=== PATIENT | female | born 1995 | race African-American/Black ===

== ENCOUNTER 2020-02-12 17:35 | Emergency (ER) | payer MEDICAID, OTHER ==
[~2020-02-12] VITALS: Ht 160 cm; Wt 63.0 kg
[2020-02-12] MEDS ORDERED: ACETAMINOPHEN 325 MG TABLET PO STA (17:46)
--- NOTE | 2020-02-12 17:54 | ED Fall/Injury ---
General Chief Complaint: Trauma-Non Activation Stated Complaint: [facility] Nursing Triage Note: ARRIVED VIA EMS FROM WORK. PT IS APPX 9 WEEKS GESTATION AND HAD A SYNCOBLE EPISODE HITTING HER HEAD. DOES NOT REMEMBER THE INCIDENT. COMPLAINS OF PAIN IN HEAD AND NECK. C-COLLAR PUT ON BY EMS. History of Present Illness Date Seen by Provider: Feb 12, 2020 Time Seen by Provider: 17:40 Initial Comments 24 year old female presents after a fall today at work, she is 9 weeks gestation. She had gone into the store room at her place of employment, does not recall what happened but a staff member reports she witnessed her fall. No LOC. No history of seizure disorder. No seizure with fall. Unsure if she hit her head. She reported neck and head pain to EMS, c-collar in place. Previous cervical spine surgery. Denies radicular symptoms in UEs. Occurred: just prior to arrival Injuries/Pain Location: head, neck Context: fainted, lightheaded Loss of Consciousness: no loss of consciousness Associated Symptoms (Fall): No Abdominal Pain, No Chest Pain, No Dizziness; Headache; No Lightheadedness, No Muscle Spasms, No Nausea/Vomiting; Neck Pain; No Ringing in Ears, No Seizures, No Shortness of Air, No Slurred Speech, No Trouble Walking, No Vision Changes Allergies and Home Medications Allergies Coded Allergies: No Known Drug Allergies (Unverified , 02/12/20) Patient Home Medication List Home Medication List Reviewed: Yes Review of Systems Review of Systems Constitutional: no symptoms reported, see HPI Musculoskeletal: see HPI, neck pain Psychiatric/Neurological: See HPI, Headache All Other Systems Reviewed Negative Unless Noted: Yes Past Fnqsels-Spkcle-Wtozvu Hx Past Med/Social Hx: Reviewed Nursing Past Med/Soc Hx Patient Social History Recent Foreign Travel: No Contact w/Someone Who Travel: No Recent Infectious Disease Expo: No Past Medical History : Yes Last Menstrual Period: Dec 09, 2019 Hx : 3 Hx Para: 2 Hx Total # of Abortions (Sp): 0 Physical Exam Vital Signs Vital Signs - First Documented 02/12/20 17:35 Temp 35.5 Pulse 74 Resp 16 B/P (MAP) 115/75 (88) Pulse Ox 100 O2 Delivery Room Air Capillary Refill : Less Than 3 Seconds Height, Weight, BMI Height: '" Weight: lbs. oz. kg; 24.00 BMI Method: General Appearance: WD/WN, no apparent distress HEENT: PERRL/EOMI, normal ENT inspection, TMs normal, pharynx normal, other (normocephalic, no contusions or abrasions to head or neck. ) Neck: tender lateral; No tender midline Cardiovascular: normal peripheral pulses, regular rate, rhythm Respiratory: chest non-tender, lungs clear, normal breath sounds Gastrointestinal: normal bowel sounds, non tender, soft Extremities: normal range of motion, non-tender, normal inspection Neurologic/Psychiatric: shoeblack II-XII nml as tested, no motor/sensory deficits, alert, normal mood/affect, oriented x 3 Skin: normal color, warm/dry Rao Coma Score Best Eye Response: (4) Open Spontaneously Best Verbal Response: (5) Oriented Best Motor Response: (6) Obeys Commands Rao Total: 15 Progress/Results/Core Measures Results/Orders My Orders Orders - [facility]ROE[facility]ERRIE Acetaminophen Tablet/Caplet (Tylenol T (02/12/20 17:46) Vital Signs/I&O 02/12/20 17:35 Temp 35.5 Pulse 74 Resp 16 B/P (MAP) 115/75 (88) Pulse Ox 100 O2 Delivery Room Air Blood Pressure Mean: 88 Progress Progress Note : Time: 17:40 Progress Note patient seen and evaluated, no neurological deficits. Since she is having headac he and neck pain central and left trapezius, we will leave the C-collar on at this time. Explained that we will try to avoid radiation because of first trimester. Tylenol 650 mg for pain. 181 patient reports less head pressure, no feels like headache. Less central neck pain, continued pain in left trapezius. C-collar removed, gentle ROM with no neck pain or radicular symptoms. Will monitor. Neurovasc status intact bilat UEs. 1845 patient continues to report improvement in her symptoms, no further neck pa in and headache minimal. Ambulates with stable gait, no vertigo. Discharge instructions and return precautions reviewed. Departure Impression Primary Impression: Fall Qualified Codes: W19.XXXA - Unspecified fall, initial encounter Additional Impressions: First trimester Syncope and collapse Disposition: 01 HOME, SELF-CARE Condition: Improved Departure-Patient Inst. Decision time for Depature: 18:40 Referrals: CURTIS HERNDON DO Patient Instructions: - The Third Month, Syncope (Fainting) (DC) Add. Discharge Instructions: Increase water intake, make sure to eat small, frequent meals. Move from lying, sitting or standing, slowly. Use Tylenol 650 mg every 6-8 hours for pain. Follow up with Dr. Herndon before returning to work. Return to Emergency Dept for new, urgent healthcare problems. All discharge instructions reviewed with patient and/or family. Voiced u nderstanding. Work/School Note: Work Release Form Date Seen in the Emergency Department: Feb 12, 2020 Restrictions: Need Release from Doctor Other Restrictions Listed Below: Follow up with Dr. Herndon before returning to work Copy Copies To 1: CURTIS HERNDON AMY ARNP Feb 12, 2020 17:54
--- NOTE | 2020-02-12 18:15 | NUR ---
C-COLLAR REMOVED BY
--- NOTE | 2020-02-12 18:51 | NUR ---
REPORT FROM SAVANAH SULLIVAN
[2020-02-12 19:03] VITALS: BP 114/98
== END 2020-02-12 22:42 | disposition home or self-care (01) ==
LOC: EDSEX 17:36 → ER 17:36
DX: O26.891 Other specified pregnancy related conditions, first trimester (principal); R55 Syncope and collapse; O99.891 Other specified diseases and conditions complicating pregnancy; M54.2 Cervicalgia; O99.351 Diseases of the nervous system complicating pregnancy, first trimester; G89.11 Acute pain due to trauma; W19.XXXA Unspecified fall, initial encounter; Y92.59 Other trade areas as the place of occurrence of the external cause; Z3A.09 9 weeks gestation of pregnancy

== ENCOUNTER → 2020-04-30 | Outpatient (CLI) | payer MEDICAID ==
--- NOTE | 2020-04-30 14:35 | Diagnostic Imaging Report ---
INDICATION: Evaluate measurements, cervical length and placental location. TECHNIQUE: Multiple real-time grayscale images were obtained over the gravid uterus. COMPARISON: None FINDINGS: There is a single live fetus in a variable presentation. heart rate was recorded at 135 bpm. Placenta is fundal and anterior. Amniotic fluid volume is normal. Cervical length is 3.3 cm. kidneys, bladder and stomach are unremarkable. brain is unremarkable. There is a four-chamber heart. There is a three-vessel cord with normal insertion. spine is unremarkable. Biometrical measurements are as follows: Biparietal 4.6 cm, age 20 weeks 0 days. Head circumference 18.43 cm, age 20 weeks 6 days. Abdominal circumference 15.69 cm, age 20 weeks 6 days. Femur length 3.39 cm, age 20 weeks 5 days. Sonographic estimate age: 20 weeks 5 days. Sonographic estimated date of delivery: 09/12/2020. Estimated Weight: 373 gm (+/- 54 gm). LMP percentile: 62%. heart rate: 135 beats per minute. number: 1 of 1. IMPRESSION: Single live IUP 20 weeks 5 days gestational age. Estimated date of confinement sonographically 09/12/2020. Dictated by: Dictated on workstation # [id number]
== END ==
LOC: RAD 09:19
PROVIDERS: ATTEND Nurse Practitioner Women's Health
DX: Z34.02 Encounter for supervision of normal first pregnancy, second trimester (principal); Z3A.20 20 weeks gestation of pregnancy
CPT/HCPCS: 76805

== ENCOUNTER 2020-09-06 11:43 | Inpatient (IN) | payer MEDICAID ==
[2020-09-06] VITALS (43 sets, daily range): BP systolic 54–138; BP diastolic 26–80
[2020-09-06] MEDS ORDERED: MINERAL OIL CONCENTRATE 99.9% 15 ML UDC TOP PRN (12:00)
[2020-09-06] MEDS ORDERED: OXYTOCIN PRE-MIX DRIP 500 ML IV SCH (12:00)
[2020-09-06] MEDS ORDERED: LIDOCAINE/EPI 2% 1:200,00 (XYLOCAINE) 20 ML VIAL INJ PRN (12:00)
[2020-09-06 12:26] LABS: BASOPHILS % (AUTO) 0 % (0-10); EOSINOPHILS # (AUTO) 0.1 10^3/uL (0.0-0.3); EOSINOPHILS % (AUTO) 1 % (0-10); HEMATOCRIT 33 % (35-52); HEMOGLOBIN 10.8 g/dL (11.5-16.0); LYMPHOCYTES # (AUTO) 2.3 10^3/uL (1.0-4.0); LYMPHOCYTES % (AUTO) 24 % (12-44); MEAN CORPUSCULAR HEMOGLOBIN 28 pg (25-34); MEAN CORPUSCULAR HGB CONC 33 g/dL (32-36); MEAN CORPUSCULAR VOLUME 86 fL (80-99); MEAN PLATELET VOLUME 10.4 fL (9.0-12.2); MONOCYTES # (AUTO) 0.6 10^3/uL (0.0-1.0); MONOCYTES % (AUTO) 6 % (0-12); NEUTROPHILS # (AUTO) 6.6 10^3/uL (1.8-7.8); NEUTROPHILS % (AUTO) 69 % (42-75); PLATELET COUNT 315 10^3/uL (130-400); WHITE BLOOD COUNT 9.6 10^3/uL (4.3-11.0)
[2020-09-06] MEDS: D5 LR IV SOLUTION 1,000 ML IV SCH ×2 (12:33→19:54)
[2020-09-06] MEDS ORDERED: PEDI1TAB35 PO (12:38)
[2020-09-06] MEDS ORDERED: LEVE500T99 PO (12:38)
--- NOTE | 2020-09-06 13:13 | History & Physical-OB ---
OB - Chief Complaint & HPI Date/Time Date of Admission: Date of Admission: Sep 06, 2020 at 11:43 Date seen by a Provider: Sep 06, 2020 Time Seen by a Provider: 12:30 Chief Complaint/History OB-Reason for Admission/Chief: 25 year old in labor, 38 6/7 weeks Hx : 3 Hx Para: 2 Expected Date of Delivery: Sep 14, 2020 Gestational Age in Weeks: 38 Gestational Age in Days: 6 Other reason for admission: this is a 25 [address] of Dr[address] Rodriguez that was scheduled for induction tomorrow. She was seen in the office today and sent to labor and delivery for labor. She lives in [place] and has history of precipitous delivery. Patient has a history of "seizures". She cannot recall the diagnosis but states she has had them since she was 4 without proper diagnosis. States that she has seen a neurologist and has just started Keppra. She has her next visit on 10/02/2020. Will continue Keppra during labor and post delivery. Will adjust levels as needed based on Neurology recommendations. Admission Nurse Assessment Rev: Yes History of Labs GBS - VDRL NR Rub I HbSAg- O-/- Hep C - Allergies and Home Medications Allergies Coded Allergies: Fish Containing Products (Verified Allergy, Unknown, 09/06/20) Home Medications Levetiracetam 500 Mg Tablet, 500 MG PO BID, (Reported) Take with breakfast and dinner Last Action: New Order Pediatric Multivit Comb. No.49 1 Each Tab.chew, 2 EACH PO DAILY, (Reported) Last Action: New Order Patient Home Medication List Home Medication List Reviewed: Yes OB - History Hx of Present Ultrasounds: Normal mid trimester US Obstetrical Complications: None Medical Complications: Other (Patient has had seizures since the age of 4. she is unsure the type, just that she "will be walking and all of a sudden I'm on the floor". She is on Keppra bid. ) Information Pre-Hospital Medication Admins: Keppra Induced Hypertension: No Maternal Gestational Diabetes: No Hemorrhage: No Obstetrical History Hx : 3 Hx Para: 2 Hx # Term Pregnancies: 2 Hx # Pregnancies: 0 Number of Living Children: 2 Delivery History Hx Dystocia: No Hx Forceps Assisted Delivery: No Hx Vacuum Extraction Assisted: No Hx Placenta Abnormality: No Hx Distress: No Patient Past Medical History seizure disorder Last was in June. Social History/Family History Alcohol Use: Denies Use Recreational Drug Use: No Smoking Cessation: Never smoker Immunizations Hepatitis A: No Hepatitis B: No Tetanus Booster (TDap): Less than 5yrs Rubella: immune RPR/VDRL: Negative GBS Status: Negative HBsAG: Negative OB - Admission Exam Physical Exam Heart: Rhythm Normal Lungs: Clear Abdomen: Gravid Extremities: Normal Reflexes: Normal Cervical Dilatation: 5cm Effacement: 50% Station: -1 Membranes: Ruptured (AROM clear) Amniotic Fluid: Clear Heart Rate: 140's Accelerations: Accelerations Present Decelerations: No Decelerations Short Term Variability: Present [place] Variability: Average (6-25) Contractions on Admission: < 5 Minutes Apart (irregular) Intensity: Mild Labs Laboratory Tests Test 09/06/20 12:13 Range/Units White Blood Count 9.6 4.3-11.0 10^3/uL Red Blood Count 3.85 3.80-5.11 10^6/uL Hemoglobin 10.8 L 11.5-16.0 g/dL Hematocrit 33 L 35-52 % Mean Corpuscular Volume 86 80-99 fL Mean Corpuscular Hemoglobin 28 25-34 pg Mean Corpuscular Hemoglobin Concent 33 32-36 g/dL Red Cell Distribution Width 12.8 10.0-14.5 % Platelet Count 315 130-400 10^3/uL Mean Platelet Volume 10.4 9.0-12.2 fL Immature Granulocyte % (Auto) 0 % Neutrophils (%) (Auto) 69 42-75 % Lymphocytes (%) (Auto) 24 12-44 % Monocytes (%) (Auto) 6 0-12 % Eosinophils (%) (Auto) 1 0-10 % Basophils (%) (Auto) 0 0-10 % Neutrophils # (Auto) 6.6 1.8-7.8 10^3/uL Lymphocytes # (Auto) 2.3 1.0-4.0 10^3/uL Monocytes # (Auto) 0.6 0.0-1.0 10^3/uL Eosinophils # (Auto) 0.1 0.0-0.3 10^3/uL Basophils # (Auto) 0.0 0.0-0.1 10^3/uL Immature Granulocyte # (Auto) 0.0 0.0-0.1 10^3/uL OB - Assessment/Plan/Diagnosis Assessment Assessment: other ( at 39/6/7 weeks for delivery. Early Labor, history of precipitous delivery with > 40 minutes from the hospital.) Admission Dx Labor 38 6/7 weeks Admission Status: Inpatient Order (span 2 midnights) Reason for Inpatient Admission: Labor Plan Plan: Expectant Management (AROM and Augment as needed) YVONNE LOPEZ DO Sep 06, 2020 13:13
[2020-09-06] MEDS ORDERED: CATHETER FLUSH 10 ML SYR IV SCH ×2 (14:00→22:00)
[2020-09-06] MEDS ORDERED: fentaNYL 2 mcg/ml BUPIVA 0.125 100 ML ONE (15:46)
[2020-09-06] MEDS ORDERED: fentaNYL INJ 100 MCG/2 ML AMP ONE (16:15)
[2020-09-06] MEDS ORDERED: BUPIVACAINE 0.25% 30 ML (SENSORCAINE) VIAL ONE (16:15)
[2020-09-06] MEDS ORDERED: ONDANSETRON 4 MG/2 ML (SDV) Z0FRAN IV PRN (16:45)
[2020-09-06] MEDS ORDERED: diphenhydrAMINE 50 MG/ML INJ (BENADRYL) IV PRN (16:45)
[2020-09-06] MEDS ORDERED: fentaNYL 2 mcg/ml BUPIVA 0.125 100 ML IV SCH (16:45)
[2020-09-06] MEDS ORDERED: NALOXONE 0.4 MG/ML 1 ML (NARCAN) VIAL IV PRN (16:45)
[2020-09-06] MEDS ORDERED: CATHETER FLUSH 10 ML SYR IV PRN (16:45)
[2020-09-06] MEDS ORDERED: LACTATED RINGERS 1,000 ML IV ONE (16:45)
[2020-09-06] MEDS ORDERED: MEASLES,MUMPS,RUBELLA 1 EA INJ SQ ONE (17:30)
[2020-09-06] MEDS ORDERED: BENZOCAINE/MENTHOL (DERMOPLAST) 56 ML CAN TP PRN (17:30)
[2020-09-06] MEDS ORDERED: TETANUS,DIPTH,PERTUSS P/F (BOOSTRIX) 0.5 ML VIAL IM ONE (17:30)
[2020-09-06] MEDS ORDERED: WITCH HAZEL(TUCKS) 40 EA JAR TOP PRN (17:30)
--- NOTE | 2020-09-06 19:32 | OB Labor & Delivery Record ---
Vag Delivery Note Vag Delivery Note Date of Delivery: 09/06/20 Preoperative Diagnosis: Tammy Valenzuela is a 25 /Para 3 / 2, Gestational Age 38 6/7 weeks labor, history of precipitous delivery, Postoperative Diagnosis: Same; labor dystocia due to macrosomia not expected. Surgeon: YVONNE LOPEZ Anesthesia: epidural Delivery Type: Findings: Viable male , apgars 8/9, weight pending Lacerations: none Intact placenta with 3 vessel cord. No nuchal cord, body cord or shoulder dystocia misoprostol 800 mcg given [place] Estimated Blood Loss: 300 ml Complications: None Condition: Stable Description of Procedure: The patient is a 25 year old female who presented to clinic with contractions. She had changed from 2- 4 cm dilation and has history of precipitous delivery so was admitted. Planned induction is for tomorrow. She was admitted and informed consent was obtained. Her labor course was remarkable for AROm at 4-5 cm and then augmentation with pitocin. She progressed to complete dilatation and began to push. Was given diphenhydramine 25 mg IV prior to delivery for cervical swelling. She was then set up for delivery. The infant's head was delivered atraumatically in the LOT position. The shoulders and remainder of the infant's body were then delivered without difficulty. Upon delivery, the head was held below the level of the perineum and the mouth and nares were bulb suctioned. The cord was doubly clamped and cut and the was handed off to the pediatric staff. An intact placenta with 3-vessel cord delivered via Caren and there was found to be minimal bleeding.~ Vigorous fundal massage was performed and the fundus was found to be firm. IV oxytocin was given.. Then she was bleeding more briskly than expected so misoprostol 800 mg given pr. Examination of the vagina and perineum revealed no laceration.. Following the delivery, sponge, instrument and needle counts were correct. Mom and baby were both in stable condition in the labor suite. Vitals - Labs Vital Signs - I&O Vital Signs Date Time Temp Pulse Resp B/P (MAP) Pulse Ox O2 Delivery O2 Flow Rate FiO2 09/06/20 17:30 87 18 125/73 (90) 100 Room Air 09/06/20 17:15 51 18 128/66 (86) 99 Room Air 09/06/20 17:08 49 18 129/63 (85) 98 Room Air 09/06/20 17:06 54 18 107/57 (74) 98 Room Air 09/06/20 17:04 69 18 54/26 (35) 98 Room Air 09/06/20 17:03 60 18 66/34 (45) 99 Room Air 09/06/20 17:00 76 18 99 Room Air 09/06/20 17:00 57/35 (42) 09/06/20 16:45 36.7 82 18 109/71 (84) 98 Room Air 09/06/20 16:38 81 18 107/55 (72) 99 Room Air 09/06/20 16:34 78 18 116/71 (86) 99 Room Air 09/06/20 16:32 80 18 117/71 (86) 98 Room Air 09/06/20 16:30 87 18 119/76 (90) 99 Room Air 09/06/20 16:27 81 18 119/76 (90) 99 Room Air 09/06/20 16:15 100 18 120/71 (87) Room Air 09/06/20 16:00 86 18 138/73 (94) Room Air 09/06/20 15:45 81 18 98/58 (71) Room Air 09/06/20 15:30 81 18 98/56 (70) Room Air 09/06/20 15:15 77 18 104/58 (73) Room Air 09/06/20 15:00 36.3 72 18 114/75 (88) Room Air 09/06/20 14:30 36.5 77 18 114/80 (91) Room Air 09/06/20 14:00 86 18 121/78 (92) Room Air 09/06/20 13:30 81 18 121/79 (93) Room Air 09/06/20 13:00 83 18 103/78 (86) Room Air 09/06/20 12:30 82 18 102/58 (73) Room Air 09/06/20 12:15 82 18 117/76 (90) 98 Room Air 09/06/20 12:00 36.4 09/06/20 11:50 36.4 82 18 98 Room Air Labs Laboratory Tests 09/06/20 12:13: White Blood Count 9.6, Red Blood Count 3.85, Hemoglobin 10.8L, Hematocrit 33L, Mean Corpuscular Volume 86, Mean Corpuscular Hemoglobin 28, Mean Corpuscular Hemoglobin Concent 33, Red Cell Distribution Width 12.8, Platelet Count 315, Mean Platelet Volume 10.4, Immature Granulocyte % (Auto) 0, Neutrophils (%) (Auto) 69, Lymphocytes (%) (Auto) 24, Monocytes (%) (Auto) 6, Eosinophils (%) (Auto) 1, Basophils (%) (Auto) 0, Neutrophils # (Auto) 6.6, Lymphocytes # (Auto) 2.3, Monocytes # (Auto) 0.6, Eosinophils # (Auto) 0.1, Basophils # (Auto) 0.0, Immature Granulocyte # (Auto) 0.0 YVONNE LOPEZ DO Sep 06, 2020 19:32
[2020-09-06] MEDS: OXYTOCIN PRE-MIX DRIP 500 ML IV SCH (21:15)
[2020-09-06] MEDS: ACETAMINOPHEN 500 MG TAB (TYLENOL) PO SCH (22:45)
[2020-09-06] MEDS: DOCUSATE SODIUM 100 MG (COLACE) CAP PO SCH (22:45)
[2020-09-06] MEDS: IBUPROFEN 600 MG (MOTRIN) TAB PO SCH (22:45)
[2020-09-07] MEDS: IBUPROFEN 600 MG (MOTRIN) TAB PO SCH ×4 (04:19→17:33)
[2020-09-07 04:20] VITALS: BP 89/54
[2020-09-07 05:34] LABS: BASOPHILS % (AUTO) 0 % (0-10); EOSINOPHILS % (AUTO) 0 % (0-10); HEMATOCRIT 28 % (35-52); HEMOGLOBIN 9.1 g/dL (11.5-16.0); LYMPHOCYTES # (AUTO) 2.5 10^3/uL (1.0-4.0); LYMPHOCYTES % (AUTO) 20 % (12-44); MEAN CORPUSCULAR HEMOGLOBIN 29 pg (25-34); MEAN CORPUSCULAR HGB CONC 33 g/dL (32-36); MEAN CORPUSCULAR VOLUME 87 fL (80-99); MEAN PLATELET VOLUME 10.6 fL (9.0-12.2); MONOCYTES # (AUTO) 0.8 10^3/uL (0.0-1.0); MONOCYTES % (AUTO) 7 % (0-12); NEUTROPHILS # (AUTO) 9.1 10^3/uL (1.8-7.8); NEUTROPHILS % (AUTO) 73 % (42-75); PLATELET COUNT 258 10^3/uL (130-400); WHITE BLOOD COUNT 12.6 10^3/uL (4.3-11.0)
[2020-09-07] MEDS: ACETAMINOPHEN 500 MG TAB (TYLENOL) PO SCH ×2 (07:17→17:33)
[2020-09-07] MEDS: OXYTOCIN PRE-MIX DRIP 500 ML IV SCH (08:08)
[2020-09-07 08:14] VITALS: BP 99/64
[2020-09-07] MEDS: PRENATAL VITAMIN 1 EA TAB PO SCH (08:14)
[2020-09-07] MEDS: FERROUS SULF 325 MG (IRON) TAB PO SCH (08:14)
[2020-09-07] MEDS: DOCUSATE SODIUM 100 MG (COLACE) CAP PO SCH (08:14)
--- NOTE | 2020-09-07 09:15 | Postpartum Progress Note ---
Note Note Day # 1 s/p Subjective: Patient is without complaints. Ambulating, voiding. Tolerating a regular diet w ithout nausea or vomiting. Normal lochia. Pain is well controlled with oral pain medications. bottle feeding. [] Objective: 09/06/20 09/06/20 09/06/20 09/06/20 21:30 21:45 22:00 22:15 Pulse 82 80 68 77 Resp 18 18 18 18 B/P (MAP) 117/62 (80) 112/56 (74) 116/74 (88) 107/67 (80) O2 Delivery Room Air Room Air Room Air Room Air 09/06/20 09/06/20 09/06/20 09/06/20 22:30 22:45 23:00 23:15 Pulse 77 70 75 78 Resp 18 18 18 18 B/P (MAP) 109/71 (84) 109/70 (83) 111/69 (83) 113/70 (84) O2 Delivery Room Air Room Air Room Air Room Air 09/06/20 09/06/20 09/07/20 09/07/20 23:30 23:45 04:20 08:14 Temp 36.6 36.2 Pulse 79 74 78 77 Resp 18 18 16 16 B/P (MAP) 103/64 (77) 105/67 (80) 89/54 (66) 99/64 (76) Pulse Ox 98 98 O2 Delivery Room Air Room Air Room Air Room Air 09/07/20 00:00 Intake Total 2000 ml Balance 2000 ml Laboratory Tests Test 09/06/20 12:13 09/07/20 05:23 Range/Units White Blood Count 9.6 12.6 H 4.3-11.0 10^3/uL Red Blood Count 3.85 3.18 L 3.80-5.11 10^6/uL Hemoglobin 10.8 L 9.1 L 11.5-16.0 g/dL Hematocrit 33 L 28 L 35-52 % Mean Corpuscular Volume 86 87 80-99 fL Mean Corpuscular Hemoglobin 28 29 25-34 pg Mean Corpuscular Hemoglobin Concent 33 33 32-36 g/dL Red Cell Distribution Width 12.8 12.8 10.0-14.5 % Platelet Count 315 258 130-400 10^3/uL Mean Platelet Volume 10.4 10.6 9.0-12.2 fL Immature Granulocyte % (Auto) 0 0 % Neutrophils (%) (Auto) 69 73 42-75 % Lymphocytes (%) (Auto) 24 20 12-44 % Monocytes (%) (Auto) 6 7 0-12 % Eosinophils (%) (Auto) 1 0 0-10 % Basophils (%) (Auto) 0 0 0-10 % Neutrophils # (Auto) 6.6 9.1 H 1.8-7.8 10^3/uL Lymphocytes # (Auto) 2.3 2.5 1.0-4.0 10^3/uL Monocytes # (Auto) 0.6 0.8 0.0-1.0 10^3/uL Eosinophils # (Auto) 0.1 0.0 0.0-0.3 10^3/uL Basophils # (Auto) 0.0 0.0 0.0-0.1 10^3/uL Immature Granulocyte # (Auto) 0.0 0.1 0.0-0.1 10^3/uL Percent Immature Platelet Fraction 3.8 0.0-7.6 % Physical Exam: General - Alert and oriented, no apparent distress Abdomen - Soft, appropriately tender to palpation, non-distended, fundus firm at umbilicus Extremities - no edema, negative Audelia's bilaterally [] Assessment: [] post- day # [], status post [] vaginal delivery. Recovering well, hemodynamically stable [] Plan: Routine care. Encourage breast feeding. Encourage ambulation. Ferrous sulfate supplementation. Plan for discharge [] Vitals - Labs Vital Signs - I&O Vital Signs Date Time Temp Pulse Resp B/P (MAP) Pulse Ox O2 Delivery O2 Flow Rate FiO2 09/07/20 08:14 36.2 77 16 99/64 (76) 98 Room Air 09/07/20 04:20 36.6 78 16 89/54 (66) 98 Room Air 09/06/20 23:45 74 18 105/67 (80) Room Air 09/06/20 23:30 79 18 103/64 (77) Room Air 09/06/20 23:15 78 18 113/70 (84) Room Air 09/06/20 23:00 75 18 111/69 (83) Room Air 09/06/20 22:45 70 18 109/70 (83) Room Air 09/06/20 22:30 77 18 109/71 (84) Room Air 09/06/20 22:15 77 18 107/67 (80) Room Air 09/06/20 22:00 68 18 116/74 (88) Room Air 09/06/20 21:45 80 18 112/56 (74) Room Air 09/06/20 21:30 82 18 117/62 (80) Room Air 09/06/20 19:30 67 18 110/62 (78) 100 Room Air 09/06/20 19:15 36.7 85 18 100 Room Air 09/06/20 19:00 67 18 106/68 (81) 100 Room Air 09/06/20 18:45 82 18 106/68 (81) 100 Room Air 09/06/20 18:30 86 18 106/65 (79) 100 Room Air 09/06/20 18:15 69 18 102/61 (75) 100 Room Air 09/06/20 18:00 36.5 69 18 98/62 (74) 100 Room Air 09/06/20 17:45 35.8 64 18 111/63 (79) 100 Room Air 09/06/20 17:30 87 18 125/73 (90) 100 Room Air 09/06/20 17:15 51 18 128/66 (86) 99 Room Air 09/06/20 17:08 49 18 129/63 (85) 98 Room Air 09/06/20 17:06 54 18 107/57 (74) 98 Room Air 09/06/20 17:04 69 18 54/26 (35) 98 Room Air 09/06/20 17:03 60 18 66/34 (45) 99 Room Air 09/06/20 17:00 76 18 99 Room Air 09/06/20 17:00 57/35 (42) 09/06/20 16:45 36.7 82 18 109/71 (84) 98 Room Air 09/06/20 16:38 81 18 107/55 (72) 99 Room Air 09/06/20 16:34 78 18 116/71 (86) 99 Room Air 09/06/20 16:32 80 18 117/71 (86) 98 Room Air 09/06/20 16:30 87 18 119/76 (90) 99 Room Air 09/06/20 16:27 81 18 119/76 (90) 99 Room Air 09/06/20 16:15 100 18 120/71 (87) Room Air 09/06/20 16:00 86 18 138/73 (94) Room Air 09/06/20 15:45 81 18 98/58 (71) Room Air 09/06/20 15:30 81 18 98/56 (70) Room Air 09/06/20 15:15 77 18 104/58 (73) Room Air 09/06/20 15:00 36.3 72 18 114/75 (88) Room Air 09/06/20 14:30 36.5 77 18 114/80 (91) Room Air 09/06/20 14:00 86 18 121/78 (92) Room Air 09/06/20 13:30 81 18 121/79 (93) Room Air 09/06/20 13:00 83 18 103/78 (86) Room Air 09/06/20 12:30 82 18 102/58 (73) Room Air 09/06/20 12:15 82 18 117/76 (90) 98 Room Air 09/06/20 12:00 36.4 09/06/20 11:50 36.4 82 18 98 Room Air I & O 09/07/20 07:00 Intake Total 2000 ml Balance 2000 ml Labs Laboratory Tests 09/06/20 12:13: White Blood Count 9.6, Red Blood Count 3.85, Hemoglobin 10.8L, Hematocrit 33L, Mean Corpuscular Volume 86, Mean Corpuscular Hemoglobin 28, Mean Corpuscular Hemoglobin Concent 33, Red Cell Distribution Width 12.8, Platelet Count 315, Mean Platelet Volume 10.4, Immature Granulocyte % (Auto) 0, Neutrophils (%) (Auto) 69, Lymphocytes (%) (Auto) 24, Monocytes (%) (Auto) 6, Eosinophils (%) (Auto) 1, Basophils (%) (Auto) 0, Neutrophils # (Auto) 6.6, Lymphocytes # (Auto) 2.3, Monocytes # (Auto) 0.6, Eosinophils # (Auto) 0.1, Basophils # (Auto) 0.0, Immature Granulocyte # (Auto) 0.0 09/07/20 05:23: White Blood Count 12.6H, Red Blood Count 3.18L, Hemoglobin 9.1L, Hematocrit 28L, Mean Corpuscular Volume 87, Mean Corpuscular Hemoglobin 29, Mean Corpuscular He moglobin Concent 33, Red Cell Distribution Width 12.8, Platelet Count 258, Mean Platelet Volume 10.6, Immature Granulocyte % (Auto) 0, Neutrophils (%) (Auto) 73, Lymphocytes (%) (Auto) 20, Monocytes (%) (Auto) 7, Eosinophils (%) (Auto) 0, Basophils (%) (Auto) 0, Neutrophils # (Auto) 9.1H, Lymphocytes # (Auto) 2.5, Monocytes # (Auto) 0.8, Eosinophils # (Auto) 0.0, Basophils # (Auto) 0.0, Immature Granulocyte # (Auto) 0.1, Percent Immature Platelet Fraction 3.8 YVONNE LOPEZ DO Sep 07, 2020 09:15
--- NOTE | 2020-09-07 13:34 | Anesthesia-Regional Post-Op ---
Regional Patient Condition Mental Status: Alert, Oriented x3 Circulation: Same as Pre-Op Headache: Absent Sensation: Full Recovery Motor Block: Absent Post Op Complications Complications None Follow Up Care/Instructions Patient Instructions None needed. Anesthesia/Patient Condition Patient is doing well, no complaints, stable vital signs, no apparent adverse anesthesia problems. No complications reported per nursing. PILY GILMAN CRNA Sep 07, 2020 13:34
[2020-09-07 15:07] VITALS: BP 103/67
[2020-09-07 17:35] VITALS: BP 116/57
[2020-09-07 22:00] VITALS: BP 108/57
[2020-09-08] MEDS: IBUPROFEN 600 MG (MOTRIN) TAB PO SCH ×3 (00:06→16:18)
[2020-09-08] MEDS: DOCUSATE SODIUM 100 MG (COLACE) CAP PO SCH ×2 (00:06→09:43)
[2020-09-08] MEDS: ACETAMINOPHEN 500 MG TAB (TYLENOL) PO SCH ×2 (03:19→16:17)
[2020-09-08 03:20] VITALS: BP 123/66
[2020-09-08] MEDS: FERROUS SULF 325 MG (IRON) TAB PO SCH (09:43)
[2020-09-08] MEDS: PRENATAL VITAMIN 1 EA TAB PO SCH (09:43)
[2020-09-08 09:55] VITALS: BP 112/66
[2020-09-08] MEDS ORDERED: FERR325T24 PO (10:37)
[2020-09-08] MEDS ORDERED: ACET-93 PO (10:37)
[2020-09-08] MEDS ORDERED: DCS100C PO (10:37)
[2020-09-08] MEDS ORDERED: IBUP-844 PO (10:37)
--- NOTE | 2020-09-08 10:38 | Discharge Inst-Women's Service ---
Discharge Inst-Women's Serv Depart Medication/Instructions New, Converted or Re-Newed RX: RX on Chart Final Diagnosis labor seizure disorder Problems Reviewed?: Yes Consults/Follow Up Additional Follow Up: Yes ([address] Leo/ neurology as scheduled) Activity Activity: Activity as Tolerated Driving Instructions: You May Drive NO SMOKING: NO SMOKING Nothing Inside Vagina: No Douching, No [place], No Tampons Diet Discharge Diet: No Restrictions Symptoms to Report to : Swelling Increased, Bleeding Excessive, Pain Increased, Fever Over 101 Degrees F, Vaginal Bleeding Increase, Cramps in Feet or Legs, Vaginal Discharge Foul For Any Problems or Questions: Contact Your Physician YVONNE LOPEZ DO Sep 08, 2020 10:38
--- NOTE | 2020-09-08 10:41 | Postpartum Progress Note ---
Note Note Day # [] Subjective: Patient is without complaints. Ambulating, voiding. Tolerating a regular diet without nausea or vomiting. Normal lochia. Pain is well controlled with oral pain medications. [] feeding. [] Objective: [] Physical Exam: General - Alert and oriented, no apparent distress Abdomen - Soft, appropriately tender to palpation, non-distended, fundus firm at umbilicus Extremities - no edema, negative Audelia's bilaterally [] Assessment: [] post- day # [], status post [] vaginal delivery. Recovering well, hemodynamically stable [] Plan: Routine care. Encourage breast feeding. Encourage ambulation. Ferrous sulfate supplementation. Plan for discharge [] Vitals - Labs Vital Signs - I&O Vital Signs Date Time Temp Pulse Resp B/P (MAP) Pulse Ox O2 Delivery O2 Flow Rate FiO2 09/08/20 03:20 36.3 69 18 123/66 (85) 99 Room Air 09/07/20 22:00 36.4 74 18 108/57 (74) 98 Room Air 09/07/20 17:35 36.2 68 16 116/57 (76) 98 Room Air 09/07/20 15:07 36.4 71 16 103/67 (79) 99 Room Air I & O 09/08/20 07:00 Intake Total 1000 ml Balance 1000 ml YVONNE LOPEZ DO Sep 08, 2020 10:41
== END 2020-09-08 14:20 | disposition home or self-care (01) | DRG 807 ==
LOC: LDRP 11:43
PROVIDERS: ADMIT Obstetrics & Gynecology; ATTEND Obstetrics & Gynecology
PROC: 10E0XZZ Delivery of Products of Conception, External Approach (ICD-10-PCS; principal; 2020-09-06)
DX: O99.354 Diseases of the nervous system complicating childbirth (principal); Z37.0 Single live birth; Z3A.38 38 weeks gestation of pregnancy; G40.909 Epilepsy, unspecified, not intractable, without status epilepticus; O66.2 Obstructed labor due to unusually large fetus
CPT/HCPCS: 36415; 85025; 86850; 86900; 86901